=== PATIENT | male | born 1955 | race Caucasian/White ===

== ENCOUNTER 2021-08-09 07:37 | Outpatient (CLI) | payer BC ==
[~2021-08-09] VITALS: Ht 182.9 cm; Wt 118.0 kg
[~2021-08-09 07:37] MED LIST: ASPIRIN E.C. 8181 MG PO; CALCIUM 600600 M2 PO; CALCIUM600 M2 PO; CARDIZEM CD 12120 MG PO; CARDIZEM SR 60M60 MG PO; CARDIZEM120 MG PO; CEPHALEXIN500 M1 PO; DIABETA 5MG5 MG/TAB PO; GLUCOPHAGE1000 MG PO; LISINOPRIL10 MG PO; MASON NATURAL1200 MG PO; METFORMIN500 MG PO; MICRONASE1.25 MG PO; MULTIPLE VITAMI1 TAB PO; PRINIVIL5 MG PO; RITE AID NATU200 MCG PO; SELENIUM200 MC5 PO; VITAMIN D 400400 IU PO; ZESTRIL 20MG TA20 MG PO; [UNRECOGNIZED DRUG - OTHER] PO
[2021-08-09 11:34] VITALS: BP 136/76; PULSE 95; TEMP 98
[2021-08-09 11:52] VITALS: BP 139/75; PULSE 81
[2021-08-09 12:15] VITALS: BP 140/81; PULSE 88
[2021-08-09 12:30] VITALS: BP 146/80; PULSE 85
[2021-08-09 12:45] VITALS: BP 134/80; PULSE 83
[2021-08-09 13:00] VITALS: BP 141/77; PULSE 83
[2021-08-09] MEDS ORDERED: PROTONIX20 MG PO (15:03)
[2021-08-09] MEDS ORDERED: DIABETA 2.5MG2.5 MG PO (15:04)
[2021-08-09] MEDS ORDERED: PRAVACHOL 20MG20 MG PO (15:04)
[2021-08-09] MEDS ORDERED: ZESTRIL 20MG TA20 MG PO (15:05)
[2021-08-09] MEDS ORDERED: OZEMPIC1 MG/0.75 SQ (15:05)
== END 2021-08-09 15:10 ==
LOC: EUO 07:37
DX: U07.1 COVID-19 (principal); E11.9 Type 2 diabetes mellitus without complications; E66.9 Obesity, unspecified; I10 Essential (primary) hypertension
CPT/HCPCS: M0243; Q0244